=== PATIENT | female | born 1995 | race Two or more races ===

== ENCOUNTER → 2024-05-29 | Outpatient (CLI) | payer MEDICAID, SELFPAY ==
[2024-05-29 10:22] LABS: HCG Qualitative,Urine Negative
--- NOTE | 2024-05-29 10:30 | XR_ITS ---
Examination: CT chest, without intravenous contrast. Sagittal and coronal 2-D reconstructions. 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 Bone and lung density settings are obtained. Sagittal and coronal 2-D reconstructions have been obtained. Low dose protocols were performed. One or more of the following dose reduction techniques were used; automated exposure control, adjustment of the mA and/or KV according to patient size, use of iterative reconstruction technique. Findings: No thoracic aortic aneurysm dilatation Pulmonary artery segments are not enlarged No paratracheal tracheobronchial or bronchopulmonary adenopathy Small pleural-based nodules bilaterally with more focal pleural thickening in the right upper lobe axial image 72 measuring 16 mm in thickness with bronchial sutures and low-grade calcification No visualized liver or splenic lesion Contracted gallbladder 2 mm upper pole right renal calculus IMPRESSION: Chronic appearing pleural and parenchymal disease in the right hemithorax, recommend 6 month follow-up CT chest without contrast to document stability of these probably chronic findings
== END | disposition home or self-care (01) ==
LOC: CDIM 09:24 → COPL 09:31
PROVIDERS: PCP Nurse Practitioner Family; Referring Provider Nurse Practitioner Family; Visit Provider Radiology Diagnostic Radiology
DX: R91.8 Other nonspecific abnormal finding of lung field (principal); Z32.00 Encounter for pregnancy test, result unknown
CPT/HCPCS: 71250; 81025

== ENCOUNTER 2024-09-30 10:25 | Emergency (ER) | payer MEDICAID, SELFPAY ==
--- NOTE | 2024-09-30 10:30 | EKG_ITS ---
[facility] Test Date: 2024-09-30 Pat Name: MAGDY TADEO Department: Room: - Gender: Female Crew Leader: : 1995 Requested By: ED Temporary Provider Order Number: [id number] Reading MD: ED Temporary Provider Measurements Intervals [place] Rate: 90 P: 66 AL: 140 QRS: 79 QRSD: 74 T: 67 QT: 317 QTc: 390 Interpretive Statements SINUS RHYTHM Compared to ECG 01/14/2024 11:52:07 No significant changes /store/S0/[id number]/ecg/[id number].pdf
[2024-09-30 10:34] VITALS: BP 119/81; PULSE 87; RESP 19; TEMP 36.8; O2SAT 100
--- NOTE | 2024-09-30 10:53 | XR_ITS ---
Examination: PA lateral chest 2 views TECHNIQUE: Upright PA lateral chest 2 views Date and time: September 30, 2024, 1206 hours, comparison January 14, 2024. INDICATIONS: Onset chest pain today. FINDINGS: Stable right apical scarring Normal heart size No interval pneumonia or pulmonary edema IMPRESSION: No interval pneumonia or pulmonary edema
--- NOTE | 2024-09-30 10:54 | PD.EDRME ---
Rapid Medical Screening Exam RME Arrival date/time: 09/30/24 10:25 29-year-old female with a history of a pneumothorax presents to the emergency room with a chief complaint of sternal chest pain, pain to the right ribs, difficulty raising her right arm x 1 day I have greeted and performed a focused initial assessment of this patient. A comprehensive ED assessment and evaluation of the patient, analysis of all test results, and completion of the medical decision making process will be conducted by additional ED providers. Chief Complaint: Chest Pain Vital signs: Vital Signs Temperature 98.3 F 09/30/24 10:34 Pulse Rate 87 09/30/24 10:34 Respiratory Rate 19 09/30/24 10:34 Blood Pressure 119/81 09/30/24 10:34 Pulse Oximetry (%) 100 09/30/24 10:34 Oxygen Delivery Method Room Air 09/30/24 10:34 Vital signs reviewed by provider: Yes
[2024-09-30 11:09] LABS: Basophils % (Auto) 1 % (0-2.5); Eosinophils # (Auto) 0.1 Thou/mm3 (0.0-0.5); Eosinophils % (Auto) 2 % (0-10); Hematocrit 38.3 % (36.0-46.0); Hemoglobin 13.5 g/dL (12.0-16.0); Immature Granulocytes % (Auto) 0 % (0-0); Immature Granulocytes Auto 0.01 Thou/mm3 (0.00-0.00); Lymphocytes # (Auto) 1.6 Thou/mm3 (1.0-4.8); Lymphocytes % (Auto) 24 % (10-50); Mean Corpuscular HGB Conc 35.2 g/dl (31.0-37.0); Mean Corpuscular Hemoglobin 30.8 pg (25.0-35.0); Mean Corpuscular Volume 87 fL (80-100); Monocytes # (Auto) 0.5 Thou/mm3 (0.0-0.8); Monocytes % (Auto) 7 % (0-12); Neutrophils # (Auto) 4.6 Thou/mm3 (1.8-7.7); Neutrophils % (Auto) 67 % (37-80); Nucleated Red Blood Cell % 0 /100 WBC (0); Platelet Count 249 Thou/mm3 (140-440); RDW Standard Deviation 41.7 fL (36.4-46.3); Red Blood Count 4.39 Miln/mm3 (4.00-5.20); White Blood Count 6.8 Thou/mm3 (3.6-11.0)
[2024-09-30] MEDS: HYDROcodone/APAP 5/325 TABLET 1 TAB PO (11:16)
[2024-09-30 11:22] LABS: Partial Thromboplastin Time 29.2 Seconds (22.0-36.0); Prothrombin Time 10.9 Seconds (9.0-12.2)
[2024-09-30 11:31] LABS: B-Type Natriuretic Peptide 46 pg/mL (0-100)
[2024-09-30 11:36] LABS: Alanine Aminotransferase 9 U/L (10-49); Albumin, Serum 4.4 gm/dL (3.5-5.0); Albumin/Globulin Ratio 1.8 (1.2-2.2); Alkaline Phosphatase 103 U/L (46-116); Anion Gap 8 (7-16); Aspartate Amino Transferase 18 U/L (0-34); BUN/Creatinine Ratio 10 Ratio (12-20); Bilirubin,Total 0.4 mg/dL (0.3-1.2); Blood Urea Nitrogen 7 mg/dL (9-23); Calcium 8.7 mg/dL (8.3-10.6); Calcium (Corrected) 8.7 mg/dL (8.5-10.1); Carbon Dioxide 25.6 mMol/L (20.0-31.0); Chloride 106 mMol/L (98-107); Creatinine (Component) 0.7 mg/dL (0.6-1.3); Estimated Creatinine Clearance 97.2 mL/min (>60); Globulin 2.4 gm/dL (2.3-3.5); Glucose 95 mg/dL (74-106); Magnesium 1.9 mg/dL (1.6-2.6); Osmolality,Calculated 277 (275-295); Potassium 4.3 mMol/L (3.4-5.1); Sodium 140 mMol/L (136-145); Total Protein 6.8 gm/dL (5.7-8.2); Troponin I < 0.002 ng/mL (0.0-0.045); eGFR > 60 See Note
--- NOTE | 2024-09-30 13:36 | EDNOTE_ITS ---
ED Chest Pain RME/HPI General Chief Complaint: Chest Pain Stated Complaint: CHEST PAIN SINCE 7, HX OF PNEUMO, HAS VALLEY FEVER Time Seen by Provider: 09/30/24 13:28 Source: patient Arrival date/time: 09/30/24 10:25 29-year-old female with a history of a pneumothorax presents to the emergency room with a chief complaint of sternal chest pain, pain to the right ribs, difficulty raising her right arm x 1 day Mode of arrival: ambulatory Limitations: no limitations RME / HPI RME / HPI narrative: 09/30/24 10:25 29-year-old female with a history of a pneumothorax presents to the emergency room with a chief complaint of sternal chest pain, pain to the right ribs, difficulty raising her right arm x 1 day I have greeted and performed a focused initial assessment of this patient. A comprehensive ED assessment and evaluation of the patient, analysis of all test results, and completion of the medical decision making process will be conducted by additional ED providers. Related Data Home Medications ?Medication ?Instructions ?Recorded ?Confirmed vitamins-iron fumarate 27 1 tab PO QDAY 07/1707/17/19 mg iron-folic acid 0.8 mg tablet ( Vitamin) Previous Rx's ?Medication ?Instructions ?Recorded ibuprofen 800 mg tablet 800 mg PO Q6H PRN pain #30 t abs 07/19/19 promethazine-DM 6.25 mg-15 mg/5 mL 5 ml PO Q6H PRN cou gh #473 mL 06/03/21 oral syrup albuterol sulfate 90 mcg/actuation 2 puff inhalation Q ID #8.5 grams 06/08/21 aerosol inhaler azithromycin 250 mg tablet See Rx Instructions PO .COM PLEX #6 06/08/21 tabs Allergies Allergy/AdvReac Type Severity Reaction Status Date / Time No Known Allergies Allergy Verified 09/30/24 10:29 Review of Systems Review of Systems Systems Reviewed: All systems reviewed, normal except as documented Constitutional Constitutional: Reports system reviewed and no additional complaints, except as documented, Denies fatigue, Denies fever(s), Denies headache(s) and Denies weakness Eyes Eyes: Reports system reviewed and no additional complaints, except as doc umented, Denies blurry vision and Denies change in vision ENT Ears, Nose, Mouth, and Throat: Reports system reviewed and no additional complaints, except as documented, Denies otalgia, Denies headache(s), Denies nasal congestion, Denies throat swelling and Denies vertigo Cardiovascular Cardiovascular: Reports system reviewed and no additional complaints, except as documented, Reports chest pain, Reports chest pain at rest, Reports chest pain with activity, Denies dyspnea and Denies dyspnea on exertion Respiratory Respiratory: Reports system reviewed and no additional complaints, except as documented, Denies chest congestion, Denies cough, Denies dyspnea, Denies dyspnea on exertion and Denies wheezing Gastrointestinal Gastrointestinal: Reports system reviewed and no additional complaints, except as documented, Denies abdominal pain, Denies cramping, Denies nausea and Denies vomiting Genitourinary Genitourinary: Reports system reviewed and no additional complaints, except as documented Musculoskeletal Musculoskeletal: Reports system reviewed and no additional complaints, except as documented and Denies back pain Integumentary/Breasts Skin/Breast: Reports system reviewed and no additional complaints, except as documented and Denies wounds Neurologic Neurologic: Reports system reviewed and no additional complaints, except as documented, Denies confusion, Denies headache(s), Denies lack of coordination, Denies vertigo and Denies weakness Psychiatric Psychiatric: Reports system reviewed and no additional complaints, except as documented, Denies anxiety, Denies confusion, Denies depression, Denies paranoia, Denies suicidal ideation and Denies tactile hallucinations Endocrine Endocrine: Reports system reviewed and no additional complaints, except as documented and Denies fatigue Hematologic/Lymphatic Hematologic/Lymphatic: Reports system reviewed and no additional complaints, except as documented and Denies lymphadenopathy Allergic/Immunologic Allergic/Immunologic: Reports system reviewed and no additional complaints, except as documented, Denies throat swelling, Denies urticaria and Denies wheezing ED Exam General Limitations: Present no limitations General appearance: Present alert and in no apparent distress Head Head exam: Present atraumatic, normocephalic and normal inspection Eye Eye exam: Present normal appearance, PERRL and EOMI ENT ENT exam: Present normal exam, normal oropharynx and mucous membranes moist Neck Neck exam: Present normal inspection, full ROM and trachea midline Chest Chest inspection: Present normal inspection and symmetric chest wall rise; Absent tenderness Expanded Chest Exam Trauma: Absent crepitus, laceration, abrasion, ecchymosis, wound, penetrating wound or surgical incision Respiratory Respiratory exam: Present normal lung sounds bilaterally Cardiovascular Cardiovascular exam: Present regular rate, normal rhythm, normal heart sounds, +S1 and +S2; Absent bradycardia, tachycardia, irregular rhythm or systolic murmur Abdominal Exam Abdominal exam: Present soft and normal bowel sounds Extremities Exam Extremities exam: Present normal inspection and full ROM Back Exam Back exam: Present normal inspection and full ROM Neurological Exam Neurological exam: Present alert, oriented X3 and CN II-XII intact Psychiatric Psychiatric exam: Present normal affect and normal mood Skin Skin exam: Present warm, dry, intact and normal color Course Quality Measures none Orders Category Date Time Status EKG (ED ONLY) *Do not use* NOW Care 09/30/24 10:30 Completed EKG (ED Only) Stat Exams 09/30/24 10:30 Draft XR chest 2V Stat Exams 09/30/24 10:53 Completed B-Type Natriuretic Peptide Stat Lab 09/30/24 10:58 Completed CBC Stat Lab 09/30/24 10:58 Completed Comprehensive Metabolic Panel Stat Lab 09/30/24 10:58 Completed Magnesium Stat Lab 09/30/24 10:58 Completed Partial Thromboplastin Time Stat Lab 09/30/24 10:58 Completed Prothrombin Time with INR Stat Lab 09/30/24 10:58 Completed Troponin I Stat Lab 09/30/24 10:58 Completed HYDROcodone*/APAP 5/325 [[place] 5/325] Med 09/30/24 10:53 Discontinued 1 tab PO X1 ONE Vital Signs Vital signs: Vital Signs Temperature 98.3 F 09/30/24 10:34 Pulse Rate 87 09/30/24 10:34 Respiratory Rate 19 09/30/24 10:34 Blood Pressure 119/81 09/30/24 10:34 Pulse Oximetry (%) 100 09/30/24 10:34 Oxygen Delivery Method Room Air 09/30/24 10:34 O2 saturation 100% within normal limits Chest Pain MDM Narrative MDM Narrative:: 29-year-old female with a history of a pneumothorax presents to the emergency room with a chief complaint of sternal chest pain, pain to the right ribs, difficulty raising her right arm x 1 day Patient is hemodynamically stable and in no apparent distress Physical examination shows clear bilateral lung sounds there is no wheezing there is no stridor there is normal breath sounds. The patient has a strong and regular rhythm S1 and S2 noted there are no murmurs. Patient states she is currently dealing with valley fever and is currently on fluconazole antifungal medication. EKG shows normal sinus rhythm at [address] deviation. CBC CMP were within normal limits. Troponin was negative. Chest x-ray was negative for any pneumonic infiltrates. I spoke to the patient during my reevaluation patient states her pain has improved. Patient was discharged and educated to follow-up with primary care provider in the next 24 to 48 hours and return to the emergency room for any evidence of worsening signs or symptoms Patient data External records reviewed:: [facility] previous records Clinical information provided by:: patient Social determinants that could affect healthcare access:: none Patient has the following chronic illnesses:: No chronic illness How is presenting disease/condition affected by chronic disease/condition?: no chronic disease Evaluation data The following diagnostics were reviewed and interpreted by me:: lab results and radiology exam(s) Lab and/or radiology exams considered but not ordered:: Labs and radiology exams considered and ordered Interpretation Summary: Chest i-[id number]: Stable right apical scarring Normal heart size No interval pneumonia or pulmonary edema IMPRESSION: No interval pneumonia or pulmonary edema Medications / Prescriptions Medications or Prescriptions considered but not ordered:: Medication given Medication administrations:: Medication Administration History Discontinued Medications Hydrocodone Bitart/Acetaminophen (Hydrocodone/[place] 5/325 Tablet) 1 tab PO X1 ONE Stop: 09/30/24 10:54 Last Admin: 09/30/24 11:16 Dose: 1 tab Documented By: OA Medication given Consultations Consultation(s) initiated? (list below): No Diagnosis Chest Pain Differential Diagnosis: fracture of rib, pneumothorax, stable angina, atypical chest pain, st elevation myocardial infarction, costochondritis and chest pain Most likely diagnosis given after review of the tests above:: Chest pain Admission Indicated Admission indicated?: not indicated Admission Request Was there a request for admission?: No Disposition Plan Disposition Plan: Discharge Discharge Attestation Discharge Attestation: The patient and all family members were given an opportunity to ask questions and understood the discharge instructions. Discharge instructions specifically effects, indications for sooner follow up or return to the emergency department, and the expected course of current diagnosis. Patient condition: Stable Discharge Plan Plan Patient Disposition: HOME (Self Care) Discharge Disposition comment: Stable Prescriptions/Referrals Prescriptions/Med Rec: No Action Vitamin 27 mg iron- 0.8 mg Tablet 1 tab PO QDAY ibuprofen 800 mg tablet 800 mg PO Q6H PRN (Reason: pain) Qty: 30 0RF promethazine-DM 6.25-15 mg/5 mL syrup 5 ml PO Q6H PRN (Reason: cough) Qty: 473 0RF albuterol sulfate 90 mcg/actuation HFA aerosol inhaler 2 puff inhalation QID Qty: 8.5 0RF azithromycin 250 mg tablet See Rx Instructions .ROUTE .COMPLEX Qty: 6 0RF Rx Instructions: For 250 mg dose pack: take 500 mg today (day 1), then 250 mg for 4 days (days 2-5) Referrals: Loretta Larson NP [Primary Care Provider] - In 1 week Problem List Clinical Impression: Chest pain Patient/Caregiver Discharge Instructions Education Materials: ED Chest Pain, Noncardiac Additional Instructions: Please follow-up with your primary care provider in the next 24 to 48 hours Your cardiac examination was within normal limits. Your chest x-ray was negative for any pneumonic infiltrates. For any evidence of worsening signs or symptoms return to the emergency room immediately Print Language: Citizen Of [place] Stand Alone Forms: Caitlyn Award Info., Patient Portal Info Letter PA/LULA Supervising Physician JANEL/LULA Supervising Physician: Dr. Page
[2024-09-30 14:42] VITALS: BP 120/78; PULSE 75
== END 2024-09-30 14:43 | disposition home or self-care (01) ==
PROVIDERS: Nurse Practitioner Family; Emergency Provider Family Medicine; PCP Nurse Practitioner Family
DX: R07.2 Precordial pain (principal); R07.81 Pleurodynia
CPT/HCPCS: 36415; 71046; 80053; 83735; 83880; 84484; 85025; 85610; 85730; 93005; 99283; A9270

== ENCOUNTER → 2024-12-10 | Outpatient (CLI) | payer MEDICAID, SELFPAY ==
[2024-12-10 12:57] LABS: HCG Qualitative,Urine Negative
--- NOTE | 2024-12-10 13:00 | XR_ITS ---
Examination: CT chest, without intravenous contrast. Sagittal and coronal 2-D reconstructions. Exam date and time: December 10, 2024 1302 hours Comparison May 29, 2024 INDICATIONS: Diagnosis coccidiomycosis of April 2024, pleural parenchymal disease right hemithorax, diagnosis chest pain unspecified CTDI:vol (mGy) 8.51 DLP: (mGycm) 272 Technique: Multiple 3.0 mm axial sections of the chest to been obtained. Bone and lung density settings are obtained. Sagittal and coronal 2-D reconstructions have been obtained. Low dose protocols were performed. One or more of the following dose reduction techniques were used; automated exposure control, adjustment of the mA and/or KV according to patient size, use of iterative reconstruction technique. Findings: Stable calcified pleural parenchymal scarring at the right apex Stable focal areas of pleural thickening around the right hemithorax compared to the prior study No new areas of parenchymal or pleural disease No focal liver or splenic lesions Contracted gallbladder Osseous structures are intact IMPRESSION: Stable pleural parenchymal scarring right hemithorax compared with May 29, 2024 No interval parenchymal disease
== END | disposition home or self-care (01) ==
PROVIDERS: PCP Nurse Practitioner Family; Referring Provider Internal Medicine; Visit Provider Internal Medicine
DX: R91.8 Other nonspecific abnormal finding of lung field (principal); Z32.00 Encounter for pregnancy test, result unknown
CPT/HCPCS: 71250; 81025